=== PATIENT | female | born 1950 | race Two or more races ===

== ENCOUNTER 2023-05-12 16:59 | Emergency (ER) | payer OTHER, MEDICAID ==
[~2023-05-12] VITALS: Ht 144.8 cm; Wt 62.0 kg
[2023-05-13 00:07] VITALS: BP 151/77; PULSE 80; RESP 18; TEMP 98.4; O2SAT 97
[2023-05-13] MEDS ORDERED: TRAM50TA2 PO (00:20)
== END 2023-05-13 01:18 | disposition home or self-care (01) ==
LOC: ER 16:59
DX: S16.1XXA Strain of muscle, fascia and tendon at neck level, initial encounter (principal); S39.012A Strain of muscle, fascia and tendon of lower back, initial encounter; I10 Essential (primary) hypertension; E78.5 Hyperlipidemia, unspecified; Z98.890 Other specified postprocedural states; Z79.899 Other long term (current) drug therapy; V43.52XA Car driver injured in collision with other type car in traffic accident, initial encounter; Y93.I9 Activity, other involving external motion; Y92.410 Unspecified street and highway as the place of occurrence of the external cause; Y99.8 Other external cause status
CPT/HCPCS: 70450; 72125; 72128; 72131; 73030